=== PATIENT | male | born 1980 | race Caucasian/White ===

== ENCOUNTER 2021-05-08 11:57 | Emergency (ER) | payer BC, SELFPAY ==
[2021-05-08 12:11] VITALS: BP 132/94; PULSE 98; RESP 18; TEMP 36.5; O2SAT 98
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
== END 2021-05-08 12:52 | disposition home or self-care (01) ==
PROVIDERS: Emergency Provider Emergency Medicine
DX: R50.9 Fever, unspecified (principal); R03.0 Elevated blood-pressure reading, without diagnosis of hypertension; Z20.822 Contact with and (suspected) exposure to COVID-19
CPT/HCPCS: 87426; 99213; C9803; G0463